=== PATIENT | male | born 1985 | race Hispanic/Latino ===

== ENCOUNTER 2016-06-25 16:59 | Emergency (ER) | payer OTHER ==
[~2016-06-25] VITALS: Ht 175.3 cm; Wt 81.6 kg
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
--- NOTE | 2016-06-25 18:32 | RADIOLOGY REPORT ---
EXAMINATION: XR WRIST, LEFT CLINICAL INFORMATION: Deformity following fall. COMPARISON: None. TECHNIQUE: AP, lateral, and oblique views of the left wrist. FINDINGS: Abnormal carpal alignment with complete dissociation of the lunate bone relative to the carpus. Specifically, the lunate is displaced and angulated volarly. The lunate does not articulate with the capitate or the radius. The first carpal row appears to be grossly intact. There is a questionable linear lucency traversing the waist of the scaphoid bone.. There is significant soft tissue swelling surrounding the left wrist joint. IMPRESSION: Complete dislocation of the lunate bone of the left wrist, with volar displacement and volar angulation of the lunate relative to the carpus. The lunates does not articulate with the capitate bone or with the distal radius. Questionable linear lucency traversing the waist of the scaphoid bone. Cannot exclude an acute fracture of the left scaphoid bone. Consider correlation with navicular views of the left wrist. This critical result was discussed with Edy Saucedo PA-C at 6:27 PM on 06/25/2016 and it was ascertained that the content and urgency of the report was understood at the time of direct communication.
[2016-06-25 19:03] VITALS: BP 125/76
== END 2016-06-25 19:45 | disposition short-term general hospital (02) ==
LOC: ERH 16:59
DX: S63.092A Other subluxation of left wrist and hand, initial encounter (principal); V28.0XXA Motorcycle driver injured in noncollision transport accident in nontraffic accident, initial encounter
CPT/HCPCS: 73110-LT